=== PATIENT | female | born 1985 | race Caucasian/White ===

== ENCOUNTER 2017-09-03 23:35 | Emergency (ER) | payer OTHER ==
[2017-09-03 23:43] VITALS: BP 147/91
--- NOTE | 2017-09-03 23:59 | EDPHY ---
General Time Seen by Provider: 09/03/17 23:40 Narrative: CHIEF COMPLAINT: Foot injury HISTORY OF PRESENT ILLNESS: Patient presents with complaints of left foot injury. She says that she was having an argument with her significant other just prior to arrival. She thinks that she twisted awkwardly injuring the top of her left foot. She says that she does not think it is broken but she does have moderate swelling and minimal pain. No numbness, tingling or weakness. No pain in the ipsilateral calcaneus, pollard, knee. She denies any complaints of pain anywhere else. ESTABLISHED ORTHOPEDIST: None REVIEW OF SYSTEMS: Ten systems reviewed and are negative unless otherwise noted in the HPI PAST MEDICAL HISTORY: None PAST SURGICAL HISTORY: No recent surgeries SOCIAL HISTORY: Nonsmoker. Lives here independently with her spouse FAMILY HISTORY: Noncontributory EXAMINATION General Appearance: Alert, no distress. Well-developed well-nourished. HEENT: Normocephalic and atraumatic. Pupils equal round reactive. Neck: Supple nontender. No crepitus or deformity. Cardiovascular: Symmetric DP and PT pulses are 2+. Good signs of perfusion left lower extremity. Neurological: A&O, sensory symmetric, symmetric strength of the great toes. Skin: Warm and dry, no rash. Moderate ecchymosis to the dorsum left foot with hematoma. Nonpulsatile Extremities: Mild tenderness of the left foot over the dorsum with hematoma is. There is no tenderness of the calcaneus with firm palpation. No crepitus or deformity. No till to the ankle. No tenderness of the proximal fibula. Range of motion of the ankle symmetric. Psychiatric: Mood and affect normal DIFFERENTIAL DIAGNOSES: Including but not limited to no metatarsal fracture, sprain, strain, Lisfranc injury, fracture, hematoma MDM: 11:45 p.m. Acute injury to the dorsum left foot that occurred just prior to arrival. There is moderate swelling and ecchymosis. She has no pain in the ankle, calcaneus or pollard. X-ray has been ordered. She is in no acute distress. 11:55 p.m. X-ray as read by me, without the aid of the radiologist, reveals no obvious fracture. I do not appreciate any Lisfranc injury. I re-evaluated the patient she remains ambulatory with no difficulty. She does not want any assistive device. She thinks she is fine. We discussed discharge home with outpatient follow up with Orthopedics if her pain returns or she is unable to bear weight tomorrow. She is comfortable this plan and discharged home stable condition. SUPERVISION: This patient was independently evaluated without direct involvement of or examination by the attending physician. ED Precautions: Worsening pain. Erythema, edema, cyanosis, pallor, paresthesia or anesthesia. (Justen Chatterjee) PHYSICIAN DOCUMENTATION: The patient was evaluated and managed by the Physician Fire Control Assistant. My co- signature indicates that I have reviewed this chart and I agree with the findings and plan of care as documented. I am the secondary supervising physician. (Ariana Baca) - Diagnostics Imaging Results: Imaging Impressions Foot X-Ray 09/03/17 23:43 Impression: No acute osseous abnormalities. - Objective Vital Signs: Initial Vital Signs Temperature (C) 36.6 C 09/03/17 23:40 Heart Rate 84 09/03/17 23:40 Respiratory Rate 16 09/03/17 23:40 Blood Pressure 147/91 H 09/03/17 23:40 O2 Sat (%) 98 09/03/17 23:40 O2 Delivery Mode Room Air Allergies/Adverse Reactions: No Known Allergies Allergy (Unverified 09/03/17 23:40) Departure - Departure Disposition: Home, Routine, Self-Care Clinical Impression: Sprain of foot, left, Hematoma Condition: Good Instructions: Foot Sprain (ED), Hematoma (ED) Additional Instructions: 1. Ice and elevation often 2. Contact orthopedist tomorrow morning for outpatient definitive care if her symptoms persist 3. Recommend nonweightbearing if he had any pain over the midfoot Referrals: Rafat Snow MD [Medical Doctor] - As per Instructions
== END 2017-09-04 00:08 | disposition home or self-care (01) ==
DX: S93.602A Unspecified sprain of left foot, initial encounter (principal); X50.9XXA Other and unspecified overexertion or strenuous movements or postures, initial encounter; Y99.8 Other external cause status; Y93.89 Activity, other specified